=== PATIENT | female | born 1985 | race American Indian/Alaskan Native ===

== ENCOUNTER 2018-01-26 10:37 | Emergency (ER) | payer MEDICAID ==
[2018-01-26 10:37] VITALS: BMI 30.9
[2018-01-26 10:52] VITALS: RESP 18; TEMP 99.4; O2SAT 98
--- NOTE | 2018-01-26 11:30 | ED PDOC ---
Arrival/HPI - General Chief Complaint: Upper Extremity Problem/Injury Time Seen by Provider: 01/26/18 11:14 Historian: Patient - History of Present Illness Narrative History of Present Illness (Text): 01/26/18 11:27 32 yo female w/o significant pMHx come in for evaluation of left shoulder pain gradually developed for past week. Pt reports, pain is localized over left shoulder with intermittent radiation down to Left upper arm, " aching pain", worse with Left arm movement. Otherwise, pt denies known trauma or injury, fever , chills, headache, dizziness, neck pain, CVP, SOB, dyspnea, diaphoresis, palpitation, denies weakness, sensory or vascular deficits to left arm. Ambulate to Ed for evaluation, not in any apparent distress. Past Medical History - Provider Review Nursing Documentation Reviewed: Yes - Travel History Have you recently traveled outside [place] w/in the past 3 mons?: No - Past History Past History: No Previous - Infectious Disease Hx of Infectious Diseases: None - Tetanus Immunization Tetanus Immunization: Unknown - Reproductive Menopause: No - Past Medical History Past Medical History: No Previous - Psychiatric Hx Psychophysiologic Disorder: No Hx Substance Use: No - Past Surgical History Past Surgical History: No Previous - Anesthesia Hx Anesthesia: No - Suicidal Assessment Feels Threatened In Home Enviroment: No Family/Social History - Physician Review Nursing Documentation Reviewed: Yes Family/Social History: No Known Family HX Smoking Status: Never Smoked Hx Alcohol Use: No Hx Substance Use: No Allergies/Home Meds Allergies/Adverse Reactions: Allergies Penicillins Adverse Reaction (Verified 01/26/18 10:52) ITCHING Review of Systems - Physician Review All systems were reviewed & negative as marked: Yes - Review of Systems Constitutional: Normal Eyes: Normal ENT: Normal Respiratory: Normal. absent: SOB, Cough, Sputum, Wheezing Cardiovascular: Normal. absent: Chest Pain, Palpitations, Edema Gastrointestinal: Normal Genitourinary Female: Normal Musculoskeletal: Arthralgias (Left shoulder). absent: Neck Pain Skin: Normal. absent: Rash, Pruritis Neurological: Normal Endocrine: Normal Hemo/Lymphatic: Normal Psychiatric: Normal Physical Exam Vital Signs Reviewed: Yes Vital Signs Temp Pulse Resp BP Pulse Ox 01/26/18 10:48 99.4 F 76 18 110/76 98 Temperature: Afebrile Blood Pressure: Normal Pulse: Regular Respiratory Rate: Normal Appearance: Positive for: Well-Appearing, Non-Toxic, Comfortable Pain Distress: None Mental Status: Positive for: Alert and Oriented X 3 - Systems Exam Head: Present: Normocephalic Conjunctiva: Present: Normal Mouth: Present: Moist Mucous Membranes Neck: Present: Normal Range of Motion, Trachea Midline. No: MIDLINE TENDERNESS , Paraspinal Tenderness, JVD, Bruit Respiratory/Chest: Present: Clear to Auscultation, Good Air Exchange. No: Respiratory Distress, Wheezes, Decreased Breath Sounds Cardiovascular: Present: Regular Rate and Rhythm, Normal S1, S2. No: Murmurs Back: No: CVA Tenderness Upper Extremity: Present: Normal ROM, NORMAL PULSES, Tenderness (mild over superior aspect left shoulder. No palpable deformity, no skin changes, no neurovascular deficist distally. FAROM of Left shoulder without difficulty.), Neurovascularly Intact. No: Swelling, Deformity Lower Extremity: Present: NORMAL PULSES, Normal ROM. No: Edema, Tenderness, Swelling, Deformity Neurological: Present: GCS=15, Speech Normal Skin: Present: Warm, Dry, Normal Color. No: Rashes Psychiatric: Present: Alert, Oriented x 3 Medical Decision Making ED Course and Treatment: 01/26/18 11:32 On re-evaluation, pt is afebrile, hemodynamicaly stable. Non-toxic, ambulatory in ED with stable gait. ENT: no acute findings neck: Supple, (-) JVD Lungs: CTA B/L, BS equal B/L. CVS: (+)S1S2, reg. LUE: mild tenderness over superior aspect left shoulder, no deformity, no skin changes. FAROM, no neurovascular deficits Neurologicaly intact. Imaging review and appears normal. Pt has clinical findings c/w left shoulder arthralgia/tendonitis. result review and discussed with pt. ref. to f/u with PMD, Ortho in 2-3 days for re-eavl. return to Ed if any worsening or new changes. - RAD Interpretation Radiology Orders: 01/26/18 11:14 SHOULDER LEFT [RAD] Stat (-) acute fx or dislocation - Medication Orders Current Medication Orders: Discontinued Medications Ibuprofen (Motrin Tab) 600 mg PO STAT STA Stop: 01/26/18 11:16 Last Admin: 01/26/18 11:41 Dose: 600 mg MAR Pain/Vitals Document 01/26/18 11:41 GMD (Rec: 01/26/18 11:42 [facility] [id number]) Pain Reassessment Is This A Pain ReAssessment? No Presence of Pain Presence of Pain Yes Location Left, Right or Bilateral Left Pain Location Body Site Shoulder Disposition/Present on Arrival - Present on Arrival Any Indicators Present on Arrival: No History of DVT/PE: No History of Uncontrolled Diabetes: No Urinary Catheter: No History of Decub. Ulcer: No History Surgical Site Infection Following: None - Disposition Have Diagnosis and Disposition been Completed?: Yes Diagnosis: Shoulder tendonitis Disposition: HOME/ ROUTINE Disposition Time: 11:59 Patient Plan: Discharge Condition: STABLE Discharge Instructions (ExitCare): Shoulder Tendinopathy (DC) Additional Instructions: LIght duty to Left shoulder/arm, avoid left arm lifting Take medication as prescribed as need Follow up with PMD, Orthopedist in2 -3 days for re-evaluation. return to ED if any worsening or new changes. Prescriptions: Gabapentin 300 mg PO HS #10 capsule Ibuprofen [Motrin Tab] 600 mg PO TID #20 tab Methocarbamol [Robaxin] 500 mg PO TID #14 tab Ref[place]: [facility] [place] [facility] [place] - Follow up with primary Forms: [employer] (Macedonian)
[2018-01-26 12:10] VITALS: BP 118/76; PULSE 72
--- NOTE | 2018-01-26 12:16 | RAD ---
Date of service: 01/26/2018 PROCEDURE: Radiographs of the Left Shoulder HISTORY: pain COMPARISON: No prior. FINDINGS: BONES: Normal. No fracture. JOINTS: Normal. Glenohumeral and acromioclavicular joints preserved. No osteoarthritis. SOFT TISSUES: Normal. OTHER FINDINGS: None. IMPRESSION: Normal radiographs of the left shoulder.
== END 2018-01-26 12:10 | disposition home or self-care (01) ==
LOC: ED 10:37
DX: M75.92 Shoulder lesion, unspecified, left shoulder (principal)